=== PATIENT | male | born 1990 | race Caucasian/White ===

== ENCOUNTER 2022-08-17 08:20 | Emergency (ER) | payer OTHER, SELFPAY ==
[2022-08-17 08:29] VITALS: BP 133/106; PULSE 90; RESP 16; TEMP 36.2; O2SAT 98
--- NOTE | 2022-08-17 08:44 | ED.URI ---
HPI - URI/Sore Throat General Chief Complaint: Upper Respiratory Infection Stated Complaint: fever, sore throat Time Seen by Provider: 08/17/22 08:45 Source: patient and RN notes reviewed Mode of arrival: ambulatory Limitations: no limitations History of Present Illness HPI Narrative: 32-year-old male presents with concern for 2-day history of sore throat, nasal congestion, nasal drainage. Reports 3-day history of fever. Reports he has been taking Mucinex DM and pseudoephedrine. He is. Reports Tylenol does help his sore throat. He denies headache, nausea, vomiting, diarrhea. Reports sweats. MD elicited complaint: sore throat and nasal congestion Related Data Home Medications Medication Instructions Recorded Confirmed hydrochlorothiazide 12.5 mg tablet mg 08/17/22 nebivolol 2.5 mg tablet (Bystolic) mg 08/17/22 paroxetine HCl 10 mg/5 mL oral mg 08/17/22 suspension Allergies Allergy/AdvReac Type Severity Reaction Status Date / Time cefaclor Allergy Unknown unknown Verified 07/14/19 10:40 Review of Systems Review of Systems: CONSTITUTIONAL: Reports malaise, sweats, or fever. EYES: Denies visual changes, redness, or discharge. ENT: Reports rhinorrhea, congestion, sore throat. Denies sinus pain, otalgia CARDIOVASCULAR: Denies chest pain, palpitations, or edema. RESPIRATORY: Reports occasional cough. Denies dyspnea. GASTROINTESTINAL: Denies abdominal pain, nausea, vomiting, diarrhea SKIN: Denies rash or itching. MUSCULOSKELETAL: Denies myalgia. NEUROLOGIC: Denies headache. All systems reviewed & are unremarkable except as noted in HPI and below PMFSH Family History Family History (Updated 11/11/15 @ 12:00 by DOCTOR UNKNOWN) Mother Acute myocardial infarction Social History Social History Smoking status: Never smoker Comments At time of signature, agree with nursing past medical, surgical, social and family history. There is no relevant family history pertinent to the presenting complaint Exam Narrative: GENERAL: Well-appearing, well-nourished, and in no acute distress. HEAD: Normocephalic EYES: PERRLA, conjunctivae clear ENT: Nares clear, clear discharge. Mucous membranes moist. TM pearly [place] with sharp light reflex bilaterally; no tragal tenderness. Oropharynx erythematous without lesions. Tonsils enlarged and without exudate, no drooling, no hoarseness, no trismus, uvula midline. NECK: Supple. No lymphadenopathy CHEST: Clear to auscultation, breath sounds equal. No wheezing, rhonchi, rales, or stridor. No respiratory distress, speaks in full sentences. HEART: Regular rate and rhythm. No murmur heard. SKIN: Warm, dry, no rash. NEURO: Alert and oriented x3. PSYCH: Normal mood and affect Course Course Emergency Course: Patient is aware of diagnosis, understands and agrees to treatment plan. Anticipatory guidance given. Patient agrees to follow-up as directed and is aware of reasons to seek care at the emergency department. Portions of this record may have been created with voice recognition software Level of Care: Express Care Visit Vital Signs Vital signs: Vital Signs Temperature 97.1 F L 08/17/22 08:29 Pulse Rate 90 08/17/22 08:29 Respiratory Rate 16 08/17/22 08:29 Blood Pressure 133/106 H 08/17/22 08:29 Pulse Oximetry 98 08/17/22 08:29 Oxygen Delivery Room Air 08/17/22 08:29 Temperature 97.1 F L 08/17/22 08:29 Pulse Rate 90 08/17/22 08:29 Respiratory Rate 16 08/17/22 08:29 Blood Pressure 133/106 H 08/17/22 08:29 Pulse Oximetry 98 08/17/22 08:29 Oxygen Delivery Room Air 08/17/22 08:29 Reviewed. MDM - URI/Sore Throat MDM Narrative Medical decision making narrative: Differential diagnosis considered: Guillermo virus, strep pharyngitis, allergic rhinitis, upper respiratory tract infection, sinusitis, rhinosinusitis, nasopharyngitis. viral pharyngitis, otitis media, otitis externa, pneumonia, bronchitis, viral cough syndrome, viral syndrome
== END 2022-08-17 09:08 | disposition home or self-care (01) ==
PROVIDERS: Emergency Provider Nurse Practitioner
DX: J06.9 Acute upper respiratory infection, unspecified (principal); I10 Essential (primary) hypertension
CPT/HCPCS: 87081; 87880; 99213; G0463

== ENCOUNTER 2024-08-08 15:58 | Emergency (ER) | payer OTHER, SELFPAY ==
--- NOTE | 2024-08-08 16:06 | ED.URI ---
HPI - URI/Sore Throat General Chief Complaint: Upper Respiratory Infection Stated Complaint: sore throat Time Seen by Provider: 08/08/24 16:10 History of Present Illness HPI Narrative: 33-year-old male presented for complaint of sore throat. Onset yesterday. Also reports postnasal drainage and headache. He denies shortness of breath wheezing, nausea, vomiting, fevers or chills. Currently taking doxycycline for folliculitis. Using Flonase. Endorses history of health anxiety. Related Data Home Medications Medication Instructions Recorded Confirmed bupropion HCl 150 mg 24 hr tablet, 150 mg PO DIRECTED 08/08/24 08/08/24 extended release buspirone 10 mg tablet 10 mg DIRECTED 08/08/24 08/08/24 doxycycline hyclate 100 mg capsule 100 mg PO DIRECTED 08/08/24 08/08/24 eszopiclone 2 mg tablet 2 mg DIRECTED 08/08/24 08/08/24 Allergies Allergy/AdvReac Type Severity Reaction Status Date / Time cefaclor Allergy Unknown unknown Verified 07/14/19 10:40 Review of Systems Review of Systems: CONSTITUTIONAL: Denies body aches, fever, chills, or sweats. EYES: Denies visual changes, redness, or discharge. ENT: Reports sore throat Denies rhinorrhea, congestion, or otalgia. CARDIOVASCULAR: Denies chest pain, palpitations, or edema. RESPIRATORY: Denies dyspnea. GASTROINTESTINAL: Denies abdominal pain, nausea, vomiting, or diarrhea. SKIN: Denies rash, itching, or wounds. MUSCULOSKELETAL: Denies back pain, joint pain, or myalgia. NEUROLOGIC: Reports headache PMFSH Past Medical History Medical History (Updated 08/08/24 @ 16:35 by Mariya Maurer APRN) SVT (supraventricular tachycardia) Family History Family History Mother Acute myocardial infarction Social History Social History Smoking status: Never smoker Exam Narrative: GENERAL: well-appearing, no acute distress. EYES: conjunctivae clear ENT: Mucous membranes moist. TMs pearly [place] with normal light reflex bilaterally; no tragal tenderness. Oropharynx mildly erythematous without lesions. Tonsils not enlarged and without exudate. No drooling, no hoarseness, no trismus, uvula midline. No tripod positioning, hot potato voice, or soft palate swelling. NECK: Supple. No lymphadenopathy CHEST: Clear to auscultation, breath sounds equal. No respiratory distress, speaks in full sentences. HEART: Regular rate and rhythm. No murmur heard. SKIN: Warm, dry, no rash. NEURO: Anxious Alert and oriented x3. Course Course Emergency Course: Patient is aware of diagnosis, understands and agrees to treatment plan. Anticipatory guidance given. Patient agrees to follow-up as directed and is aware of reasons to seek care at the emergency department. Portions of this record may have been created with voice recognition software Level of Care: Express Care Visit MDM - URI/Sore Throat MDM Narrative Medical decision making narrative: Negative strep result reviewed with pt. currently taking doxycycline for folliculitis. Advise supportive treatments. Patient is appropriate for outpatient treatment and follow-up. Differential Diagnosis Differential diagnosis: Likely upper respiratory infection, viral infection and pharyngitis Discharge Plan Discharge Clinical Impression: Pharyngitis Qualifiers: Pharyngitis/tonsillitis etiology: unspecified etiology Qualified Code(s): J02.9 - Acute pharyngitis, unspecified Patient Disposition: Home, Self-Care Condition: Stable Instructions: Antibiotic Form, Strep Throat (ED) Additional Instructions: Rapid strep swab was negative today You will be notified in a few days if the culture comes back positive for strep, and appropriate antibiotics will be called in at that time. if symptoms are due to a viral illness, it is not treated with antibiotics. Viral symptoms can be present for up to 10-14 days.
[2024-08-08 16:15] VITALS: BP 126/85; PULSE 91; RESP 16; TEMP 36.6; O2SAT 99
[2024-08-08 16:16] VITALS: BP 126/85; PULSE 91; RESP 16; TEMP 36.6; O2SAT 99
[2024-08-08 16:25] LABS: EDSTREPNEGPOS1 Negative (Negative)
== END 2024-08-08 16:41 | disposition home or self-care (01) ==
PROVIDERS: Emergency Provider Nurse Practitioner Family; PCP Internal Medicine
DX: J02.9 Acute pharyngitis, unspecified (principal)
CPT/HCPCS: 87081; 87880; 99213; G0463